=== PATIENT | female | born 1990 ===

== ENCOUNTER 2017-06-26 06:51 | Inpatient (IN) | payer OTHER ==
[~2017-06-26] VITALS: Ht 160 cm; Wt 92.5 kg
[2017-06-26 07:26] LABS: ABSOLUTE BASOPHIL COUNT 0 /CUMM (0.0-0.2); ABSOLUTE EOSINOPHIL COUNT 0 /CUMM (0.0-0.7); ABSOLUTE GRANULOCYTE CT 11.9 /CUMM (1.4-6.5); ABSOLUTE LYMPH COUNT 2.5 /CUMM (1.2-3.4); BASOPHIL % 0.1 % (0.0-2.0); EOSINOPHIL % 0.3 % (0-5); GRANULOCYTE % 76.7 % (42.2-75.2); HEMATOCRIT 32.6 % (37-47); MEAN CORPUSCULAR HGB 29.2 PG (27.0-31.0); MEAN CORPUSCULAR HGB CONC 33.8 G/DL (33.0-37.0); MEAN CORPUSCULAR VOLUME 86.1 FL (81.0-99.0); PLATELET COUNT 284 /CUMM (130-400); RBC DISTRIBUTION WIDTH 13.6 % (11.5-14.5); RED BLOOD CELL CT 3.79 /CUMM (4.20-5.40); WHITE BLOOD CELL COUNT 15.5 /CUMM (4.8-10.8)
--- NOTE | 2017-06-26 09:10 | History & Physical Pre-Op ---
General Information and HPI MD Statement: I have seen and personally examined CINDY WOOD and documented this H&P. The patient is a 26 year old F who presented with a patient stated chief complaint of contractions []. History of Present Illness: 26-year-old 1 para 0 at 38 weeks gestation presents with on contractions on informed by nursing staff patient's in the ED transferred to the childbirth center fully dilated rupture of membranes reveals thick meconium patient's combative and will not push heart rate in the 90s nonreassuring heart tracing at this point the patient requested a section Allergies/Medications Allergies: Coded Allergies: No Known Allergies (06/26/17) Past History Surgical History Pertinent Surgical History: none Past Family/Social History Psychosocial History Smoking Status: Never Smoked Review of Systems Review of Systems: Negative as stated in the HPI Exam & Diagnostic Data Last 24 Hrs of Vital Signs/I&O Intake & Output 06/26 1600 06/26 0800 06/26 0000 Intake Total Output Total Balance Patient 204 lb Weight Physical Exam: Obese combative white female with glasses HEENT anicteric Abdomen soft estimated weight 7 lbs. 4 oz. Pelvic is fully dilated membranes intact rupture membranes reveal 6 thick meconium 9 cm vertex at 0 station extremities negative edema Assessment/Plan As Ranked By This Provider Problem List: 1.
--- NOTE | 2017-06-26 09:16 | Operative Report ---
Operative/Inv Procedure Report Surgery Date: 06/26/17 Name of Procedure: Primary low flap transverse section via Pfannenstiel skin incision Pre-Operative Diagnosis: Nonreassuring heart tracing bradycardia thick meconium combative patient requests section Post-Operative Diagnosis: Same cold cord OP Estimated Blood Loss: 500 Surgeon/Automotive Instructor: Earlene Moore MD and Adan Choudhury MD Anesthesia: block Operative/Procedure Note Note: Procedure note patient was taken to the operating room placed supine position after adequate anesthesia patient placed in dorsolithotomy position the vagina from dorsal fashion a Henriquez was placed skin testing was performed and found to be adequate for surgery for spinal anesthesia patient was returned spine position timeout was performed patient had received 2 g of Kefzol skin testing was found to be adequate for anesthesia 2 fingerbreadths of symptoms pubis in midline skin was cut was carried down to rectus fascia which was cut in curvilinear fashion I direction peritoneal cavity was entered high into the abdomen. The [place]field was placed and lower in the incision to protect the bladder in the lower uterine segment bladder bluntly flap was developed. The bladder blade was replaced to protect the bladder. Uterus was nicked in the lower uterine segment into with back knife dissected bluntly as well as sharply on since removed from the field the was I turned from ROP to transverse for delivery on the cord was reducible around the body there was an occult cord in front of the baby's face on the cord was doubly clamped and cut the infant was handed lasting room supervisor was waiting delivering to aid in resuscitation placenta was delivered manually noted to be intact the question of a 30% abruption on the placenta patient tolerated that well on the uterus was oversewn running locking suture was indicated interrupted [id number] until on hemostasis was apparent uses turned to abdominal cavity found to be hemostatic interrupted [id number] were used for hemostasis patient tolerated that well at this point instruments were counts were correct the peritoneum was reapproximated 0 fascia was reapproximated in 2 continuous sutures of #1 subcutaneous tissue was Bovie coagulated Bovie coagulation was used for hemostasis the skin was reapproximated porsche at the end the case counts correct the urine was clear mother and transferred recovery room awake alert counts correct
[2017-06-27 08:24] LABS: ABSOLUTE BASOPHIL COUNT 0 /CUMM (0.0-0.2); ABSOLUTE EOSINOPHIL COUNT 0 /CUMM (0.0-0.7); ABSOLUTE GRANULOCYTE CT 11.3 /CUMM (1.4-6.5); ABSOLUTE LYMPH COUNT 1.4 /CUMM (1.2-3.4); ABSOLUTE MONOCYTE COUNT 0.5 /CUMM (0.10-0.60); BASOPHIL % 0.3 % (0.0-2.0); EOSINOPHIL % 0 % (0-5); MEAN CORPUSCULAR HGB 29.3 PG (27.0-31.0); MEAN CORPUSCULAR HGB CONC 33.6 G/DL (33.0-37.0); MEAN CORPUSCULAR VOLUME 87.2 FL (81.0-99.0); MEAN PLATELET VOLUME 9.1 FL (7.4-10.4); PLATELET COUNT 191 /CUMM (130-400); WHITE BLOOD CELL COUNT 13.2 /CUMM (4.8-10.8)
[2017-06-27 09:32] LABS: GRANULOCYTE % 85.4 % (42.2-75.2); HEMATOCRIT 24.7 % (37-47); RED BLOOD CELL CT 2.84 /CUMM (4.20-5.40)
--- NOTE | 2017-06-27 09:34 | PN- Post Delivery/GYN ---
Subjective Subjective: PAIN CONTROLLED Review of Systems: NEG Objective Last 24 Hrs of Vital Signs/I&O VSS Physical Exam: DRSG DRY FF EXT NT Assessment/Plan Assessment/Plan S/P R C/S POD1 STABLE D/C VOSS ADVANCE DIET INCREASE ACTIVITY Problem List: 1.
[2017-06-27 13:59] LABS: ABSOLUTE BASOPHIL COUNT 0 /CUMM (0.0-0.2); ABSOLUTE EOSINOPHIL COUNT 0 /CUMM (0.0-0.7); ABSOLUTE GRANULOCYTE CT 12.3 /CUMM (1.4-6.5); ABSOLUTE LYMPH COUNT 1.2 /CUMM (1.2-3.4); ABSOLUTE MONOCYTE COUNT 0.6 /CUMM (0.10-0.60); BASOPHIL % 0.3 % (0.0-2.0); EOSINOPHIL % 0.1 % (0-5); GRANULOCYTE % 87.1 % (42.2-75.2); HEMATOCRIT 25.9 % (37-47); MEAN CORPUSCULAR HGB 28.9 PG (27.0-31.0); MEAN CORPUSCULAR HGB CONC 33.5 G/DL (33.0-37.0); MEAN CORPUSCULAR VOLUME 86.5 FL (81.0-99.0); MEAN PLATELET VOLUME 8.6 FL (7.4-10.4); PLATELET COUNT 216 /CUMM (130-400); RBC DISTRIBUTION WIDTH 13.8 % (11.5-14.5); RED BLOOD CELL CT 2.99 /CUMM (4.20-5.40); WHITE BLOOD CELL COUNT 14.1 /CUMM (4.8-10.8)
--- NOTE | 2017-06-28 18:14 | PN- Post Delivery/GYN ---
Subjective Subjective: no c/o Review of Systems: neg Objective Last 24 Hrs of Vital Signs/I&O vss Physical Exam: incision c/d/i ff ext nt Assessment/Plan Assessment/Plan s/p c/s pod2 stable circ Problem List: 1.
[2017-06-28] MEDS ORDERED: IBUPROFEN800 M1 PO (18:17)
[2017-06-28] MEDS ORDERED: PERCOCET 5-3251 EACH PO (18:17)
[2017-06-28] MEDS ORDERED: DOCUSATE SODIU100 M3 PO (18:17)
--- NOTE | 2017-07-01 08:58 | Surgical Discharge Summary ---
Visit Information Visit Dates Admission Date: 06/26/17 Discharge Date: 06/29/17 History of Present Illness Chief Complaint: Active labor Surgical History Pertinent Surgical History: none Psychosocial History What is Your Primary Language? Persian Review of Systems: Date of Hospital Course Course Attending Physician: Addi Bolton MD,Alberto Primary Care Physician: Patient Has No Primary Care Dr Hospital Course: The patient presented in active labor at 9 cm dilated with distress and thick meconium. She was sent for primary without complication. Upon postoperative day #1 vital signs are stable and she was afebrile. Her Henriquez was discontinued her diet was advance her activity was increased. Her H&H returned stable. On postoperative day #2 patient continued to do well was bonding well with her baby breast-feeding tolerating a regular diet voiding and ambulating. Postoperative day #3 the patient was discharged home Allergies: Coded Allergies: No Known Allergies (06/26/17) Disposition Summary Disposition Principal Diagnosis: Term Additional Diagnosis: distress Discharge Disposition: home or self care Discharge Instructions General Discharge Information Code Status: Full Code Patient's Diet: Regular Patient's Activity: Pelvic rest with weight restrictions Follow-Up Instructions/Appts: 1 week incision check Medications at Discharge Discharge Medications: Start taking the following new medications: Ibuprofen (Ibuprofen) 800 MG TABLET 800 Milligram ORAL EVERY SIX HOURS NEEDED as needed for UTERINE CRAMPING Qty = 45 No Refills Comments: Last Taken:06/29/17 Time:820 Oxycodone HCl/Acetaminophen (Percocet 5-325 MG Tablet) 5 MG-325 MG TABLET 1 Tablet ORAL EVERY 4 HOURS NEEDED as needed for PAIN SCALE 4-6 (MODERATE ) Qty = 16 No Refills Comments: Last Taken:06/29/17 Time:820 Docusate Sodium (Docusate Sodium) 100 MG CAPSULE 100 Milligram ORAL TWICE DAILY as needed for STOOL SOFTENER Qty = 60 No Refills Comments: Last Taken:06/27/17 Time 2035
== END 2017-06-29 14:10 | DRG 540 ==
LOC: CBCO 06:51 → GNO 06:55
PROVIDERS: Obstetrics & Gynecology
PROC: 10D00Z1 Extraction of Products of Conception, Low, Open Approach (ICD-10-PCS; principal; 2017-06-26)
DX: O77.0 Labor and delivery complicated by meconium in amniotic fluid (principal); O76 Abnormality in fetal heart rate and rhythm complicating labor and delivery; Z3A.38 38 weeks gestation of pregnancy; Z37.0 Single live birth; O99.344 Other mental disorders complicating childbirth; F41.9 Anxiety disorder, unspecified
CPT/HCPCS: GNOS; 36415; 81001; 87086; 88307; J0131; J0690; J1050; J1200; J1650; J1885; J7120